=== PATIENT | female | born 1990 | race Caucasian/White ===

== ENCOUNTER → 2024-02-08 | Day surgery (SDC) | payer OTHER ==
[~2024-02-08] MED LIST: LIDOCAINE HCL 2% LOCAL INJ 5 ML SDV VIAL INJ ONE; METOCLOPRAMIDE HCL 10 MG/2ML VIAL ONE; PROPOFOL IV EMULSION 10 MG/ML 20 ML VIAL ONE; PROPOFOL IV EMULSION 50 ML IV ONE; SIMETHICONE 40 MG/0.6 ML BTL ONE
[2024-02-08] MEDS: LACTATED RINGER'S 1,000 ML ONE (06:08)
[2024-02-08 08:25] VITALS: BP 130/82; PULSE 84; RESP 16; O2SAT 99
== END | disposition home or self-care (01) ==
LOC: OR 05:53
PROVIDERS: ATTEND Internal Medicine Gastroenterology
DX: K29.50 Unspecified chronic gastritis without bleeding (principal); B96.81 Helicobacter pylori [H. pylori] as the cause of diseases classified elsewhere; K63.5 Polyp of colon; K52.9 Noninfective gastroenteritis and colitis, unspecified; K57.92 Diverticulitis of intestine, part unspecified, without perforation or abscess without bleeding; K22.10 Ulcer of esophagus without bleeding; K44.9 Diaphragmatic hernia without obstruction or gangrene; K62.89 Other specified diseases of anus and rectum; K64.8 Other hemorrhoids; Z71.3 Dietary counseling and surveillance; K42.9 Umbilical hernia without obstruction or gangrene; E66.01 Morbid (severe) obesity due to excess calories; Z68.41 Body mass index [BMI] 40.0-44.9, adult
CPT/HCPCS: 43239; 45380; 45385; 81025; 83630; 83993; 87045; 87177; 87324; 87328; 87449; J2001; J2470; J2704 ×2; J2765; J7121; 45378

== ENCOUNTER 2024-03-30 10:17 | Inpatient (IN) | payer OTHER ==
[~2024-03-30] VITALS: Ht 157.5 cm; Wt 104.3 kg
[2024-03-30] MEDS: ONDANSETRON HCL INJ 2MG/ML 2ML 2 MG/ML VIAL IV STA (10:46)
[2024-03-30] MEDS: KETOROLAC TROMETHAMINE 30 MG/ML VIAL IV STA (10:46)
[2024-03-30] MEDS: SODIUM CHLORIDE 0.9% 1000ML 1,000 ML IV ONE (10:46)
[2024-03-30 11:10] LABS: BASOPHILS % 0.2 % (0.0-1.0); EOSINOPHILS % 0.1 % (0.0-6.0); HEMATOCRIT 39.4 % (34.2-44.1); LYMPHOCYTES # (AUTO) 1.6 (1.0-3.2); LYMPHOCYTES % 7.5 % (18.0-39.1); MEAN CORPUSCULAR HGB CONC 30.5 g/dL (31-35); MEAN CORPUSCULAR VOLUME 88.7 fL (81-99); MONOCYTES # (AUTO) 1.5 (0.2-0.8); NEUTROPHILS # (AUTO) 18.6 (2.1-6.9); NEUTROPHILS % 84.6 % (38.7-80.0); PLATELET COUNT 363 x10e3/uL (140-360); RED BLOOD COUNT 4.44 x10e6/uL (3.6-5.1); RED CELL DISTRIBUTION WIDTH 14.5 % (11.7-14.4); WHITE BLOOD COUNT 21.98 x10e3/uL (4.8-10.8)
[2024-03-30 11:32] LABS: BILIRUBIN,URINE 1+ (NEGATIVE); CLARITY,URINE CLOUDY (CLEAR); COLOR,URINE YELLOW (YELLOW); GLUCOSE, URINE NEGATIVE (NEGATIVE); KETONES,URINE 1+ (NEGATIVE); LEUKOCYTE ESTERASE ,URINE NEGATIVE (NEGATIVE); NITRITE,URINE NEGATIVE (NEGATIVE); PH,URINE 7.5 (5 - 7); PROTEIN,URINE DIPSTICK 1+ (NEGATIVE); URINE UROBILINOGEN 0.2 mg/dL (0.2 - 1)
[2024-03-30 11:40] LABS: BACTERIA,URINE FEW /HPF; EPITHELIAL CELLS,URINE MANY /LPF; MUCUS,URINE MANY (RARE); RBC,URINE 0-5 /HPF (0-5); RENAL EPITHELIAL CELLS,URINE RARE; TRANSITIONAL EPI CELLS,URINE RARE; WBC,URINE (MAN) 0-5 /HPF (0-5)
[2024-03-30 12:06] LABS: BAND NEUTROPHILS % (MANUAL) 3 %; LYMPHOCYTES % (MANUAL) 14 % (19-48); MONOCYTES % (MANUAL) 1 % (3.4-9.0); NEUTROPHILS % (MANUAL) 82 % (40-74); NUCLEATED RED BLOOD CELLS 2
[2024-03-30 13:06] LABS: ALANINE AMINOTRANSFERASE 28 IU/L (0-55); ALBUMIN 3.7 g/dL (3.5-5.0); ALBUMIN/GLOBULIN RATIO 0.9 (0.8-2.0); ALKALINE PHOSPHATASE 63 IU/L (40-150); ANION GAP 16.9 mmol/L (8-16); BLOOD UREA NITROGEN 8 mg/dL (7-26); BUN/CREATININE RATIO 12 (6-25); CALCIUM 9.3 mg/dL (8.4-10.2); CARBON DIOXIDE 21 mmol/L (22-29); CHLORIDE 102 mmol/L (98-107); CREATININE, SERUM 0.68 mg/dL (0.57-1.11); EST GLOMERULAR FILTRATION RATE 117 ML/MIN (>=60); GLUCOSE 104 mg/dL (74-118); LIPASE 11 U/L (8-78); POTASSIUM 3.9 mmol/L (3.5-5.1); SODIUM 136 mmol/L (136-145); TOTAL PROTEIN 7.9 g/dL (6.5-8.1)
[2024-03-30] MEDS: PIPERACILLIN/TAZOBACTAM 4.5 GM in SODIUM CHLORIDE 0.9% 100 ML IV ONE (13:13)
[2024-03-30] MEDS ORDERED: IOPAMIDOL 370 MG/ML 100 ML INFUS..BTL INJ ONE (13:18)
[2024-03-30] MEDS ORDERED: Morphine 4mg INJECTION 4 MG/ML INJ IV PRN (14:15)
[2024-03-30] MEDS ORDERED: ONDANSETRON HCL INJ 2MG/ML 2ML 2 MG/ML VIAL IV PRN (14:15)
[2024-03-30] MEDS ORDERED: SODIUM CHLORIDE 0.9% 1000ML 1,000 ML IV SCH (14:15)
[2024-03-30 19:17] VITALS: PULSE 100; RESP 17; TEMP 98.4
[2024-03-30] MEDS: SODIUM CHLORIDE 0.9% 1000ML 1,000 ML IV SCH (20:13)
[2024-03-30 21:47] VITALS: BP 125/82; PULSE 97; RESP 17; TEMP 99.1; O2SAT 99
[2024-03-30 22:27] VITALS: BP 125/82; PULSE 97; RESP 17; TEMP 99.1; O2SAT 99
[2024-03-31] VITALS (8 sets, daily range): BP systolic 125–139; BP diastolic 70–85; PULSE 72–100; RESP 18–20; TEMP 97.1–98.7; O2SAT 97–100
[2024-03-31] MEDS ORDERED: SODIUM CHLORIDE 0.9% 200 ML ONE (02:35)
[2024-03-31] MEDS ORDERED: SODIUM CHLORIDE 0.9% 100 ML ONE (02:36)
[2024-03-31] MEDS: PIPERACILLIN/TAZOBACTAM 4.5 GM in SODIUM CHLORIDE 0.9% 100 ML IV SCH (02:46)
[2024-03-31 06:49] LABS: ALBUMIN 3.2 g/dL (3.5-5.0); ALBUMIN/GLOBULIN RATIO 0.8 (0.8-2.0); ANION GAP 13.4 mmol/L (8-16); BILIRUBIN,TOTAL 1.1 mg/dL (0.2-1.2); CALCIUM 8.6 mg/dL (8.4-10.2); CREATININE, SERUM 0.7 mg/dL (0.57-1.11); TOTAL PROTEIN 7.2 g/dL (6.5-8.1)
[2024-03-31 06:56] LABS: POTASSIUM 3.4 mmol/L (3.5-5.1)
[2024-03-31 07:01] LABS: BASOPHILS % 0.2 % (0.0-1.0); EOSINOPHILS # (AUTO) 0.1 (0.0-0.4); EOSINOPHILS % 0.7 % (0.0-6.0); HEMATOCRIT 34.3 % (34.2-44.1); HEMOGLOBIN 10.2 g/dL (12.0-16.0); LYMPHOCYTES # (AUTO) 1.6 (1.0-3.2); LYMPHOCYTES % 14.8 % (18.0-39.1); MEAN CORPUSCULAR HEMOGLOBIN 27.1 pg (28-32); MEAN CORPUSCULAR HGB CONC 29.7 g/dL (31-35); MONOCYTES # (AUTO) 0.7 (0.2-0.8); MONOCYTES % 6.2 % (4.4-11.3); NEUTROPHILS # (AUTO) 8.3 (2.1-6.9); NEUTROPHILS % 77.5 % (38.7-80.0); PLATELET COUNT 263 x10e3/uL (140-360); RED BLOOD COUNT 3.77 x10e6/uL (3.6-5.1); RED CELL DISTRIBUTION WIDTH 14.5 % (11.7-14.4); WHITE BLOOD COUNT 10.68 x10e3/uL (4.8-10.8)
[2024-03-31 22:18] LABS: % IRON SATURATION 13 % (15-50); IRON 44 ug/dL (50-170); TOTAL IRON BINDING CAPACITY 330 ug/dL (261-478); TRANSFERRIN 236 mg/dL (180-382)
[2024-03-31 22:52] LABS: FOLATE 8.7 ng/mL (7.0-15.4)
[2024-04-01] VITALS (8 sets, daily range): BP systolic 127–151; BP diastolic 76–95; PULSE 69–81; RESP 16–18; TEMP 98–98.7; O2SAT 97–100
[2024-04-01 05:53] LABS: BASOPHILS % 0.2 % (0.0-1.0); EOSINOPHILS # (AUTO) 0.1 (0.0-0.4); EOSINOPHILS % 1.3 % (0.0-6.0); HEMATOCRIT 33.4 % (34.2-44.1); HEMOGLOBIN 10.1 g/dL (12.0-16.0); LYMPHOCYTES # (AUTO) 1.8 (1.0-3.2); LYMPHOCYTES % 21.9 % (18.0-39.1); MEAN CORPUSCULAR HEMOGLOBIN 27.1 pg (28-32); MEAN CORPUSCULAR HGB CONC 30.2 g/dL (31-35); MEAN CORPUSCULAR VOLUME 89.5 fL (81-99); MONOCYTES # (AUTO) 0.5 (0.2-0.8); NEUTROPHILS # (AUTO) 5.8 (2.1-6.9); NEUTROPHILS % 70.1 % (38.7-80.0); PLATELET COUNT 270 x10e3/uL (140-360); RED BLOOD COUNT 3.73 x10e6/uL (3.6-5.1); WHITE BLOOD COUNT 8.21 x10e3/uL (4.8-10.8)
[2024-04-01 06:16] LABS: ALBUMIN 2.9 g/dL (3.5-5.0); ALBUMIN/GLOBULIN RATIO 0.8 (0.8-2.0); ANION GAP 12.4 mmol/L (8-16); BILIRUBIN,TOTAL 0.6 mg/dL (0.2-1.2); CALCIUM 8.5 mg/dL (8.4-10.2); CREATININE, SERUM 0.66 mg/dL (0.57-1.11); POTASSIUM 3.4 mmol/L (3.5-5.1); TOTAL PROTEIN 6.5 g/dL (6.5-8.1)
[2024-04-02] VITALS: BP 142/87; PULSE 79; RESP 18; TEMP 98.5; O2SAT 100
[2024-04-02] MEDS: CYANOCOBALAMIN INJ 1,000 MCG/ML VIAL IM ONE (01:16)
[2024-04-02 04:48] VITALS: BP 138/83; PULSE 74; RESP 18; TEMP 98.5; O2SAT 96
[2024-04-02 08:20] VITALS: BP 149/89; PULSE 70; RESP 19; TEMP 98.1; O2SAT 98
[2024-04-02 08:36] VITALS: BP 149/89; PULSE 70; RESP 19; TEMP 98.1; O2SAT 98
[2024-04-02] MEDS: IRON SUCROSE 100 MG in SODIUM CHLORIDE 0.9% 100 ML IV SCH (08:44)
[2024-04-02] MEDS: CYANOCOBALAMIN INJ 1,000 MCG/ML VIAL IM SCH (08:44)
[2024-04-02 12:10] VITALS: BP 132/84; PULSE 72; RESP 20; TEMP 98.7; O2SAT 98
[2024-04-02] MEDS ORDERED: AUGMENTIN 500-1 EACH PO (15:35)
[2024-04-02 16:18] VITALS: BP 112/81; PULSE 83; RESP 17; TEMP 98.7; O2SAT 98
== END 2024-04-02 17:23 | disposition home or self-care (01) | DRG 872 ==
LOC: ER 10:24 → ERHOLD 14:04 → MED/SURG3 21:41 → OBSVTOIN 03-31 13:09
PROVIDERS: ADMIT Internal Medicine; ATTEND Internal Medicine
PROC: 3E0333Z Introduction of Anti-inflammatory into Peripheral Vein, Percutaneous Approach (ICD-10-PCS; principal; 2024-03-30)
DX: A41.9 Sepsis, unspecified organism (principal); K57.32 Diverticulitis of large intestine without perforation or abscess without bleeding; E66.01 Morbid (severe) obesity due to excess calories; Z68.41 Body mass index [BMI] 40.0-44.9, adult; K76.0 Fatty (change of) liver, not elsewhere classified; K29.70 Gastritis, unspecified, without bleeding; R19.7 Diarrhea, unspecified; R11.2 Nausea with vomiting, unspecified; Z90.49 Acquired absence of other specified parts of digestive tract
CPT/HCPCS: 36415; 74177; 80053; 81001; 82607; 82746; 82948; 83540; 83605; 83690; 84466; 84702; 85025; 85045; 87040; 99284; G0378; J1756; J1885; J2405; J2470; J2543; J3420; J7030; J7050; Q9967

== ENCOUNTER → 2024-10-04 | Outpatient (REF) | payer OTHER ==
[~2024-10-04] MED LIST changes: +AUGMENTIN 500-1 EACH PO; +DIATRIZOATE MEGL/DIATRIZOA SOD 30 ML BTL PO ONE; +IOPAMIDOL 370 MG/ML 100 ML INFUS..BTL INJ ONE; -LIDOCAINE HCL 2% LOCAL INJ 5 ML SDV VIAL INJ ONE; -METOCLOPRAMIDE HCL 10 MG/2ML VIAL ONE; -PROPOFOL IV EMULSION 10 MG/ML 20 ML VIAL ONE; -PROPOFOL IV EMULSION 50 ML IV ONE; -SIMETHICONE 40 MG/0.6 ML BTL ONE
== END ==
LOC: CT 15:55
PROVIDERS: ATTEND Surgery
DX: K43.2 Incisional hernia without obstruction or gangrene (principal)
CPT/HCPCS: 74177; Q9963; Q9967

== ENCOUNTER → 2024-11-09 | Day surgery (SDC) | payer OTHER ==
[2024-11-08 15:11] LABS: BASOPHILS % 0.2 % (0.0-1.0); EOSINOPHILS % 0.2 % (0.0-6.0); HEMATOCRIT 38.9 % (34.2-44.1); LYMPHOCYTES # (AUTO) 2.3 (1.0-3.2); LYMPHOCYTES % 18.3 % (18.0-39.1); MEAN CORPUSCULAR HEMOGLOBIN 26.4 pg (28-32); MEAN CORPUSCULAR HGB CONC 30.8 g/dL (31-35); MEAN CORPUSCULAR VOLUME 85.5 fL (81-99); MONOCYTES # (AUTO) 0.5 (0.2-0.8); MONOCYTES % 3.8 % (4.4-11.3); NEUTROPHILS # (AUTO) 9.6 (2.1-6.9); PLATELET COUNT 382 x10e3/uL (140-360); RED BLOOD COUNT 4.55 x10e6/uL (3.6-5.1); RED CELL DISTRIBUTION WIDTH 15.3 % (11.7-14.4); WHITE BLOOD COUNT 12.47 x10e3/uL (4.8-10.8)
[2024-11-08 15:36] LABS: CALCIUM 9.7 mg/dL (8.4-10.2); CREATININE, SERUM 0.71 mg/dL (0.57-1.11)
[~2024-11-09] MED LIST changes: +ACETAMINOPHEN 1000 MG/100 ML 100 ML IV ONE; +BIOTIN 800 MCG1 EACH PO; +BUPIVACAINE/EPI 0.5% 30ML SDV-MPF INJ ONE; +CEFTRIAXONE 1 GM VIAL ONE; -DIATRIZOATE MEGL/DIATRIZOA SOD 30 ML BTL PO ONE; +FAMOTIDINE 20 MG/2 ML VIAL IV ONE; +FENTANYL CITRATE/PF 100MCG/2 ML INJ ONE; -IOPAMIDOL 370 MG/ML 100 ML INFUS..BTL INJ ONE; +LIDOCAINE HCL 2% LOCAL INJ 5 ML SDV VIAL INJ ONE; +MAGNESIUM OXID400 MG PO; +METOCLOPRAMIDE HCL 10 MG/2ML VIAL ONE; +MIDAZOLAM HCL 2 MG/2 ML VIAL ONE; +ONDANSETRON HCL INJ 2MG/ML 2ML 2 MG/ML VIAL ONE; +PROPOFOL IV EMULSION 10 MG/ML 20 ML VIAL ONE; +ROCURONIUM BROMIDE 1 ML IV ONE; +SEVOFLURANE INHAL SOLN 250 ML PEN BTL ONE; +SUCCINYLCHOLINE CHLORIDE 20 MG/ML 10ML VIAL ONE; +WOMENS MULTI PO; +ZEPBOUND10 MG/0.5 SC; +[UNRECOGNIZED DRUG - OTHER] PO
[2024-11-09] MEDS: LACTATED RINGER'S 1,000 ML ONE (10:33)
[2024-11-09 14:40] VITALS: TEMP 97.6
[2024-11-09] MEDS: FENTANYL CITRATE/PF 100MCG/2 ML INJ ONE (15:09)
[2024-11-09 15:35] VITALS: BP 133/81; PULSE 85; RESP 15; O2SAT 99
== END | disposition home or self-care (01) ==
LOC: OR 09:02
PROVIDERS: ATTEND Surgery
DX: K43.0 Incisional hernia with obstruction, without gangrene (principal); K42.9 Umbilical hernia without obstruction or gangrene; K57.92 Diverticulitis of intestine, part unspecified, without perforation or abscess without bleeding; E66.01 Morbid (severe) obesity due to excess calories; Z01.812 Encounter for preprocedural laboratory examination; Z79.85 Long-term (current) use of injectable non-insulin antidiabetic drugs
CPT/HCPCS: 36415; 49616; 80048; 81025; 85025; 88302; J0131; J0330; J0690; J1308; J2003; J2250; J2405; J2704; J2765; J3010; J7121; J0696